=== PATIENT | female | born 1940 | race Two or more races ===

== ENCOUNTER 2016-08-04 10:42 | Outpatient (CLI) | payer MEDICARE, BC ==
[~2016-08-04] VITALS: Ht 154.9 cm; Wt 53.6 kg
[2016-08-04 10:50] VITALS: BP 185/75; PULSE 72; RESP 18; Ht 154.9 cm; Wt 53.6 kg
[2016-08-04] MEDS ORDERED: TRAM-40 PO (10:58)
[2016-08-04] MEDS ORDERED: LORA10TA3 PO (10:58)
[2016-08-04] MEDS ORDERED: FLUT9.9S NASAL (10:58)
[2016-08-04] MEDS ORDERED: LOSA25TA5 PO (10:58)
[2016-08-04] MEDS ORDERED: CALC-84 PO (10:58)
[2016-08-04] MEDS ORDERED: FAMO40TA52 PO (10:58)
--- NOTE | 2016-08-04 13:12 | CONS ---
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 Even though it has remained relatively stable since 2008 the increase in size is somewhat worrisome and the nature of the disease would be enough of an indication for surgical excision of this area. I put approximately 90% chance that this is gastrointestinal stromal tumor and with a negative margin resection of the part of the stomach that this is arising from likely done laparoscopically and minimally invasively. The patient's overall life expectancy would be normal and she would likely not need to receive any more adjuvant type medications afterwards. If this is a pancreatic tumor it should certainly be excised where we can find the pathology diagnosis and then determine further treatments after that. Regardless, I do not see any other better option than to remove this area. She certainly has had enough of a followup with multiple images and I have enough reason to recommend surgical excision. I do not believe that a biopsy would change my recommendations at all and that the entire lesion should be evaluated by pathology to give us a final diagnosis. I made my strong recommendation to the patient and I described the complexity of decision making as well as the possibilities of the operation that included partial gastrectomy versus distal pancreatectomy and splenectomy. We also discussed possibility of cholecystectomy during the same operation if it was deemed appropriate at the time of the operation. I reviewed the operations in detail and described the risks, benefits and alternatives of each and answered all the patient's questions and family's questions to the best of my ability. We reviewed the postoperative expected outcomes including the 40% chance of pancreatic leak from the tail of the pancreas and likely need for prolonged drainage of this area should that occur. I believe that the patient and family appeared to understand and overall agreed with the plans. With above assessment, I recommend the followin. Preoperative history and physical. 2. Schedule the patient for a laparoscopic, possible open partial gastrectomy versus distal pancreatectomy and splenectomy. Thank you again for allowing us to participate in the care of this very pleasant lady and her wonderful family. If there are any questions, please feel free to contact me at [phone]. TOTAL VISIT TIME: 60 minutes of which more than half was spent in [id number] discussion with the patient, discussions with her daughter, as well as coordination of care between multiple physicians and providers. UPDATED CLINICAL HISTORY: The patient is a very pleasant 76-year-old lady with comorbidities including gastroesophageal reflux disease and arthropathy who during evaluation for possible symptomatic cholelithiasis was found to have a mass around the lesser sac of the stomach between that and the tail of the pancreas. History of lesion between the tail of pancreas and stomach discovered on an office based ultrasound performed 03/07/2009 showing gallstones and a complex cystic lesion in the tail of the pancreas. CT scan of the abdomen and pelvis 04/04/2009 showed 3.7 cm intermediate density probably solid enhancing mass in the left upper quadrant medial to the stomach abutting the splenic artery and well marginated. There was enhancement and was suspicious for neoplasm. Gallbladder had a slightly thickened wall and there was also pars interarticularis defect L5-S1 with slight slippage grade I spondylolisthesis. Open MRI 05/17/2009 showed a 4.5 x 4.2 cm lesion that was well circumscribed partially visualizing the lesser sac appearing to be separate from the pancreatic tail. Note the quality of this study was suboptimal. CT abdomen and pelvis 09/22/2009 showed the mass to be 3.0 x 3.8 cm in the same spot. CT pelvis 10/27/2010 showed a 3.6 x 4.3 cm lesion slightly increased in size from 09/22/2009. MRI abdomen with and without contrast 01/28/2015, was again limited due to motion artifact. Repeat MRI 09/16/2015 again was limited due to motion artifact. MRI 05/31/2016 showed persistent enhancing mass within the lesser sac measured at 4.8 x 4.0 cm, increased in size compared to 2010 and 2008. Possibility of an exophytic gastric mass or a pancreatic tumor was mentioned. CT abdomen and pelvis with and without contrast 06/03/2016 showed similar appearing mass, likely a gastrointestinal stromal tumor versus a pancreatic tail mass along with gallstones. COMORBIDITIES: 1. Gastroesophageal reflux disease. 2. Arthropathy. 3. Symptomatic cholelithiasis. 4. Left eye pain. 5. Borderline hypertension. 6. Memory deficits. 7. Hyperlipidemia. 8. Allergic rhinitis. 9. History of back pain. 10. Hernia repair around 1993 or 1994. HISTORY OF PRESENT ILLNESS: The patient is a very pleasant 76-year-old lady with above-mentioned comorbidities whom we were kindly asked to consult regarding management of her known abdominal mass. The patient reports occasional twinges of pain and her symptoms seem to be more concentrated in the right upper quadrant and not in the left upper quadrant. She has had slightly decreased appetite over the course of the last number of years, but no major changes in her weight. No difficulties with nausea or vomiting, no issues with bowel or bladder habits, and no blood in the stool or urine. ALLERGIES: NO KNOWN DRUG ALLERGIES. MEDICATIONS: 1. Vitamin D. 2. Loratadine. 3. Famotidine. SOCIAL HISTORY: The patient lives with her family. She does not report any smoking, drinking, or intravenous drug use. FAMILY HISTORY: No mention of major medical, surgical or oncologic problems in the family. REVIEW OF SYSTEMS: Other than the above-mentioned, there are no other pertinent positives or pertinent negatives in a complete 14-point review of systems. PHYSICAL EXAMINATION: GENERAL: The patient appears to be a very pleasant lady of descent, appearing stated age or perhaps even younger, sitting in a chair comfortably and in no acute distress. BMI is 22.3. VITAL SIGNS: Temperature 97.9, blood pressure 185/75, pulse 72, respiratory rate 18, pulse oximetry 98% on room air. HEENT: Normocephalic and atraumatic. Extraocular muscles and hearing are grossly intact bilaterally and symmetrically. Sclerae are nonicteric. Oral cavity is clear; oral mucosa appeared to be pink and moist. Dentition: fair. NECK: Supple. There is no lymphadenopathy or JVD. There is no submental, submandibular or supraclavicular lymphadenopathy. CHEST: Rises symmetrically with each breath; patient is breathing comfortably. There are no audible wheezes, rales or rhonchi on the gross exam. HEART: Pulse is regular and palpable on the right wrist. Capillary refill was normal. Carotid pulses are palpable bilaterally and symmetrically in the neck. EXTREMITIES: Lower extremities contain no pitting edema around the ankles bilaterally and symmetrically. ABDOMEN: Abdomen is soft, nontender and nondistended. There are no peritoneal signs or guarding. No evidence of ascites, organomegaly, caput medusae, engorged subcutaneous veins, or other abnormalities. SKIN: Appears to be pink and feels warm to touch. NEUROLOGIC: Awake, alert, and follows commands appropriately. LABORATORY VALUES: Dated 05/2016 shows platelet count 218, albumin 4.0. Liver function and injury parameters for the most part normal. CA-125 14, CA-19 9, CEA 2.2, H. pylori test was negative. IMAGING: Reviewed above. Note that I personally reviewed all the available images and I agree in general with their overall reported findings. Dictated By: GERRY NIETO MD KK/NTS Conf#: [id number] DID#: [id number] CC: JOHN LAINEZ MD; BRODIE SMITH MD;*End* [facility]
== END 2016-08-04 16:29 | disposition home or self-care (01) ==
LOC: HPC 10:42
PROVIDERS: ATTEND Transplant Surgery
DX: R19.00 Intra-abdominal and pelvic swelling, mass and lump, unspecified site (principal); K21.9 Gastro-esophageal reflux disease without esophagitis; M12.9 Arthropathy, unspecified; K80.20 Calculus of gallbladder without cholecystitis without obstruction; H57.12 Ocular pain, left eye; R03.0 Elevated blood-pressure reading, without diagnosis of hypertension; R41.3 Other amnesia; E78.5 Hyperlipidemia, unspecified; J30.9 Allergic rhinitis, unspecified
CPT/HCPCS: G0463